=== PATIENT | male | born 1995 | race Caucasian/White ===

== ENCOUNTER 2017-12-25 18:58 | Emergency (ER) | payer OTHER, SELFPAY ==
--- NOTE | 2017-12-25 19:14 | DI.REPORT_ITS ---
SYMPTOM/DIAGNOSIS: CRUSH INJURY, PAIN LEFT THUMB: No bony or joint abnormality is seen.
--- NOTE | 2017-12-25 19:14 | ED.GENADUL_ITS ---
Disposition Clinical Impression: Crush injury to thumb Disposition: HOME Condition: Fair Instructions: Crush Injury (ED) Additional Instructions: Encourage elevation of affected hand. Tylenol and/or ibuprofen as needed for discomfort. Keep current dressing on for the next 24 hours. After that time, please keep the area clean, dry, covered. You may shower and wash with running water but do not soak or submerge this will increase her risk of infection. If he develops signs of infection including redness, warmth, drainage, increased pain, fever/chills, discharge or other new/worsening symptoms please seek care urgently once again. Follow-up with primary care for reevaluation in 1 week. May use splint while pain persists. Avoid activities that cause increased pain in the thumb. Referrals: Valeria Cortez NP [Primary Care Provider] - Forms: Work Release Medical Decision Making - Medical Decision Making Patient presents today with chief complaint of crush injury to left thumb. Patient is right-hand dominant. Patient has a crush injury with ecchymosis, break in the skin and swelling to the ulnar side of the left thumb nail. Sensation is intact. Ligamentous exam is intact. Patient is up-to-date on immunizations. I am concerned he may have fractured, will obtain imaging. Patient took Tylenol this afternoon, we will augment this with ibuprofen. X-ray reviewed by radiologist. Advised that the bones are normal as of the soft tissues. Normal three-view evaluation. Discussed these findings with the patient. Advised that he has soft tissue crush injury. Encourage elevation. Wound was copiously washed out by myself and explored to base in a bloodless field. No foreign body or debris was noted. Superficial laceration extends along the ulnar side of the lateral aspect of the nail. It extends approximately 2 mm from the distal aspect of the nail and 3 mm proximal and lateral. Nailbed is not involved. Wound edges are by approximately 2 mm. However, I am unable to reapproximate these with manipulation of the tissue. Nor does this wound open any further. I discussed with them/benefits of closure. At this point, given the pressure on the tissue secondary to swelling and do not feel that closure will be of much benefit. The wound is not open. It appears fairly superficial. We did discuss the signs and symptoms of infection when to seek care urgently once again. Advised he may wash with running water but should not soak or submerge this will increase his risk of infection. Advised that he keep this clean, dry , covered. Patient will be given a foam and metal splint at the time of discharge to help with discomfort. He is currently in a bulky dressing that he will keep on for the next 24 hours. Advise follow-up with primary care in 1 week for reevaluation. All his questions and concerns were addressed and he is in agreement this plan. History of Present Illness - General Stated complaint: LEFT THUMB INJURY Time Seen by Provider: 12/25/17 19:05 Source: patient, family, RN notes reviewed Mode of arrival: ambulatory Limitations: no limitations - History of Present Illness Initial comments: Patient is a 22-year-old, [id number] male, accompanied by his mother, with chief complaint of injury to the left thumb. He reports that around 215 this afternoon, while at work, he dropped a Uriah on the ulnar side of the distal aspect of his thumb. He denies any altered sensation. Has exquisite discomfort with movement of the digit. Noted ecchymosis and small laceration to the area. States that the more proximal finger is not painful but feels weird. Denies other injury the time of the incident. Reports that last tetanus was completed in September 2017. - Related Data Melatonin 10 mg PO HS PRN 12/25/17 Allergies Allergy/AdvReac Type Severity Reaction Status Date / Time No Known Allergies Allergy Unverified 12/25/17 19:24 Review of Systems Constitutional: no symptoms reported Respiratory: no symptoms reported Musculoskeletal: as per HPI Skin: as per HPI Neurological: as per HPI Past Medical History - Past Medical History Medical history: asthma Surgical history: non-contributory - Social History Living Situation: lives with parent(s) General Exam - General Limitations: no limitations General appearance: alert, in no apparent distress - Respiratory Respiratory exam: Absent: respiratory distress - Extremities Exam Extremities exam: Present: tenderness, normal capillary refill, joint swelling. Absent: normal inspection (Exam the patient's left upper extremity is significant for abrasion, ecchymosis and swelling to the ulnar side of the nail and just lateral to this. Patient does have a small amount of ecchymosis under the nail itself. He has good extension and flexion against resistance. Range of motion is limited secondary to pain and swelling. He does have surrounding swelling. Sensation is intact. No active bleeding.), full ROM - Neurological Exam Neurological exam: Present: alert, normal gait - Psychiatric Psychiatric exam: Present: normal affect, normal mood - Skin Skin exam: Absent: intact (Patient has what appears to the laceration along the ulnar side of the nail, extending to a few millimeters proximal to this.)
[2017-12-25] MEDS: Ibuprofen 800 MG TAB PO (19:19)
[2017-12-25 19:21] VITALS: BP 120/73; PULSE 75; RESP 12; TEMP 36.8; O2SAT 98
--- NOTE | 2017-12-25 19:38 | DI.VRAD_ITS ---
EXAM: XR Left Finger(s), 2 or More Views EXAM DATE/TIME: 12/25/2017 7:14 PM CLINICAL HISTORY: 22 years old, male; Injury or trauma; Injury history: Crushing injury; Initial encounter; Finger; Bilateral; Thumb TECHNIQUE: XR Left finger minimum 2 views. COMPARISON: No relevant prior studies available. FINDINGS: Bones/joints: Normal. Soft tissues: Normal. IMPRESSION: Normal three-view evaluation. Dictated and Authenticated by: Jefry Wallace MD. Ordering:VIDAL MULLEN MD
== END 2017-12-25 19:59 | disposition home or self-care (01) ==
PROVIDERS: Emergency Provider Student in an Organized Health Care Education/Training Program
DX: S67.02XA Crushing injury of left thumb, initial encounter (principal); S61.012A Laceration without foreign body of left thumb without damage to nail, initial encounter; W23.0XXA Caught, crushed, jammed, or pinched between moving objects, initial encounter
CPT/HCPCS: 99283; 73140

== ENCOUNTER 2018-10-25 00:12 | Outpatient (CLI) | payer BC, SELFPAY ==
[2018-10-25 10:55] LABS: ALT 26 U/L (12-78); AST 12 U/L (15-37); Albumin 4.3 g/dL (3.4-5.0); Alkaline Phosphatase 87 U/L (46-116); Anion Gap 7.2 mmol/L (3-11); BUN 17 mg/dL (7-18); Bilirubin, Total 1.1 mg/dL (0.2-1.0); CO2 28.8 mmol/L (21.0-32.0); CREATININE 0.78 mg/dL (0.70-1.30); Chloride 107 mmol/L (98-107); Glucose 84 mg/dL (70-100); Potassium 4.3 mmol/L (3.5-5.1); Sodium 143 mmol/L (136-145)
== END 2018-10-25 00:32 ==
DX: Z00.00 Encounter for general adult medical examination without abnormal findings (principal); N50.9 Disorder of male genital organs, unspecified; G47.00 Insomnia, unspecified
CPT/HCPCS: 36415; 80053

== ENCOUNTER 2020-11-25 03:34 | Outpatient (CLI) | payer SELFPAY ==
[2020-11-25 11:02] LABS: ALT 21 U/L (16-63); AST 11 U/L (15-37); Albumin 4.6 g/dL (3.4-5.0); Alkaline Phosphatase 64 U/L (46-116); Anion Gap 3.9 mmol/L (3-11); BUN 14 mg/dL (7-18); Bilirubin, Total 0.6 mg/dL (0.2-1.0); CO2 33.1 mmol/L (21.0-32.0); CREATININE 0.8 mg/dL (0.70-1.30); Calcium 9.7 mg/dL (8.5-10.1); Chloride 105 mmol/L (98-107); Glucose 87 mg/dL (74-106); Potassium 4.5 mmol/L (3.5-5.1); Sodium 142 mmol/L (136-145); Total Protein 7.4 g/dL (6.4-8.2)
== END 2020-11-25 03:35 | disposition home or self-care (01) ==
LOC: LBO 03:34
DX: Z00.00 Encounter for general adult medical examination without abnormal findings (principal)
CPT/HCPCS: 36415; 80053

== ENCOUNTER 2022-11-17 18:45 | Emergency (ER) | payer OTHER, SELFPAY ==
[2022-11-17 18:52] VITALS: BP 121/72; PULSE 62; RESP 16; TEMP 36.6; O2SAT 100
[2022-11-17] MEDS: Lidocaine/Epinephri/Tetracaine Topical Gel 3 ML TP (19:21)
--- NOTE | 2022-11-17 20:09 | ED.GENADUL_ITS ---
Discharge Plan Disposition Patient Disposition: Home Discharge Details Clinical Impression: Laceration of eyebrow Primary Care Provider: Jay Crawford ED Provider: Pedro Mann Home Meds and New Rx's Prescriptions: No Action No Known Home Meds Discharge Instructions Instructions: Skin Adhesive Care (ED), Facial Laceration (ED) Additional Instructions: Please keep wound clean and dry and return for any signs of infection. After glue was fully dry and an hour or so you may apply an ice pack to help with swelling around your eye. If you notice any severe pain or discomfort with movement of your eye or severe worsening of your symptoms return the emergency department for reassessment otherwise follow-up with primary care provider as needed. Referrals: Jay Crawford, [employer] [Primary Care Provider] - Discharge Data Discharge Date/Time-TO BE ENTERED AT DEPARTURE: 11/17/22 20:16 Medical Decision Making Patient presenting the emergency department for chief complaint of left eyebrow laceration. 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 Patient denies any other injury or trauma, visual change, and only has mild bleeding and swelling to the left eyebrow. He does state that he is up-to-date on his tetanus and has received it within the last 3 years. Physical exam shows a 1 cm superficial laceration that is through the left eyebrow. No other worrisome findings are noted beyond swelling. Discussed with patient risk versus benefit of skin adhesive versus sutures. After thorough discussion patient decided he would prefer just to have skin adhesive. Wound was well approximated after repair with skin adhesive and otherwise patient to return for new or worsening symptoms or signs of infection. After discussion of diagnosis and plan of care patient has no further needs, questions, or concerns and states clear understanding to return to the emergency department for any worsening symptoms. This documentation was generated using [employer] system, please disregard any oddities of phrase or misspellings. HPI General Mode of arrival: ambulatory . Date/Time Provider Initiated Documentation: 11/17/22 18:57 . Limitations to Documentation: no limitations . Information obtained by: patient and RN notes reviewed . History of Present Illness 27 year old M presents to the emergency department with the chief complaint of Facial laceration, described as mild, Patient started experiencing this hour(s) (1) Patient notes no other symptoms.. Patient did receive the following treatments prior to arrival, none Related Data Home Medications Medication Instructions Recorded Confirmed Unknown [No Known Home Meds] 12/11/20 11/17/22 Allergies Allergy/AdvReac Type Severity Reaction Status Date / Time No Known Allergies Allergy Verified 11/17/22 18:56 General Stated Complaint: Laceration VIET: 4 Review of Systems Constitutional Constitutional: Denies malaise Eyes Eyes: Denies blurry vision and Denies change in vision ENT Ears, Nose, Mouth, and Throat: Denies neck pain Cardiovascular Cardiovascular: Denies syncope and Denies lightheadedness Musculoskeletal Musculoskeletal: Denies neck pain and Denies numbness Integumentary/Breasts Skin/Breast: Reports as per HPI Neurologic Neurologic: Denies syncope, Denies numbness and Denies paresthesias PFSH All Active Problems Laceration of eyebrow (Acute) Bilateral knee pain (Acute) Bradycardia with 41-50 beats per minute (Acute) Increased BMI (Acute 10/16/17) Lump in scrotum (Acute 10/16/17) Surgical History Repair of inguinal hernia (~1996) IN [facility] Family History Mother Depression Hypothyroid AND 3 OF HER SIBLINGS Hypertension Father Diabetes Depression Hyperlipidemia Hypertension Heart disease Sister No problems noted. Brother Depression Brother No problems noted. Brother No problems noted. Maternal Grandfather , 82 AAA (abdominal aortic aneurysm) Hypothyroid Paternal Grandfather , 82 Diabetes Heart disease Maternal Grandmother Essential hypertension Heart disease Paternal Grandmother Essential hypertension Heart disease Hyperlipidemia Stroke Asthma Maternal Uncle AAA (abdominal aortic aneurysm) Maternal Uncle AAA (abdominal aortic aneurysm) Maternal Aunt No problems noted. Maternal Aunt No problems noted. Maternal Aunt No problems noted. Social History Smoking/Tobacco Use Status: Current every day Tobacco Type: e-cigarettes Tobacco: How many years used: 3 Second Hand Exposure: Yes Smoking risk assessment performed?: Yes Alcohol Intake: current Alcohol Intake frequency: a few times a month Alcohol type: beer Drug use: Never Substance use type: does not use Counseling given: No Counseling provided: none Caregiver/Support person: No Household members: significant other Housing: apartment Communication Needs: None Do you need help understanding health information?: Never Pets and animals: No Sexually active: Yes Do you think of yourself as: straight/heterosexual Current gender identity: male What is your relationship status?: living with partner How often do you talk on the phone with friends or family?: three or more times per week How often do you get together with friends or relatives?: twice per week How often do you attend temple or gnosticism services?: 1-3 times per year Do you belong to any clubs or organized social groups?: no Panel score (0-1 are the most socially isolated patients): 2 What type of physical activity do you participate in: none, other Details: stairs, manual labor and running Flavia/Religious: No preference Special flavia needs: No Seatbelt use: always Helmet use: Yes Helmet use: sometimes Drive intox or ride w/intox patrol driver: No Do you feel safe in your relationship?: Yes Exam Const General: cooperative, no acute distress and not ill appearing Orientation: alert, awake and oriented x3 HENMT Head: normal to inspection Ears: hearing grossly normal bilaterally General nose exam: external nose normal Face and sinus: laceration (1cm) left through eyebrow linear, actively bleeding and superficial Mouth: moist mucous membranes Eyes Periorbital: periorbital findings abnormal left (Left upper periorbital swelling surrounding trauma) Eyelids: eyelids normal Conjunctivae: conjunctivae normal Sclera: sclerae normal Pupils: PERRL EOM: EOM intact bilaterally Resp Effort & Inspection: normal respiratory effort, able to speak in complete sentences and no respiratory distress Neuro General: patient alert, patient awake, patient oriented x3, moves all extremities and no focal motor deficits Sensory Exam: no sensory deficits noted Course Vital Signs Vital signs: Vital Signs Temperature 36.6 C 11/17/22 18:52 Pulse 62 11/17/22 18:52 Respiratory Rate 16 11/17/22 18:52 Blood Pressure 121/72 11/17/22 18:52 Pulse Oximetry 100 11/17/22 18:52 Temperature 36.6 C 11/17/22 18:52 Pulse 62 11/17/22 18:52 Respiratory Rate 16 11/17/22 18:52 Respiratory Effort Normal, Non-Labored 11/17/22 18:55 Blood Pressure 121/72 11/17/22 18:52 Blood Pressure Position Sitting 11/17/22 18:52 Pulse Oximetry 100 11/17/22 18:52 Oxygen Delivery Method Room Air 11/17/22 18:52 Oxygen Flow Rate 0 11/17/22 18:52 Procedures Laceration Laceration 1: Site: face Side (If applicable): left Size (cm): 1 Description: linear Depth: simple, single layer Local Anesthetic: other anesthetic (LET) Pre-repair: wound explored, irrigated extensively and deep structures intact Skin layer closed with: other (Skin adhesive) PAWSS Have you Been Recently Intoxicated or Drunk Within the Last 30 days?: No Have you Ever Experienced Previous Episodes of Alcohol Withdrawal?: No Have you ever Experienced Withdrawal Seizures?: No Have you ever Experienced Delirium Tremens(DT)s?: No Have you ever undergone Alcohol Rehabilitation Treatment (i.e, inpt ot outpatient treatment programs)?: No Have you ever Experienced Blackouts?: No Have you ever Combined Alcohol with other Downers within the last 90 days?: No Have you ever Combined Alcohol with any other Substance of Abuse during the last 90 days?: No Result: 0
[2022-11-17 20:15] VITALS: PULSE 68; O2SAT 98
== END 2022-11-17 20:16 | disposition home or self-care (01) ==
LOC: ER 20:21
PROVIDERS: Emergency Provider Nurse Practitioner Family; PCP Nurse Practitioner Family
DX: S01.112A Laceration without foreign body of left eyelid and periocular area, initial encounter (principal); W20.8XXA Other cause of strike by thrown, projected or falling object, initial encounter; Y93.E9 Activity, other interior property and clothing maintenance; Y92.012 Bathroom of single-family (private) house as the place of occurrence of the external cause; Y99.9 Unspecified external cause status
CPT/HCPCS: 12011; 99282